=== PATIENT | female | born 1950 | race Caucasian/White ===

== ENCOUNTER 2018-04-05 08:08 | Emergency (ER) | payer MEDICARE, OTHER ==
[2018-04-05] MEDS ORDERED: Magnesium Sulfate 2 GM/NS 0.9% 50 ML BAG ONE (08:20)
[2018-04-05] MEDS ORDERED: Ondansetron PF 4 MG/2 ML Vial ONE (08:29)
[2018-04-05] MEDS ORDERED: methylPREDNISolone Sod Succ/PF 125 MG/2 ML VIAL ONE (08:29)
[2018-04-05 08:51] LABS: #Basophils 0.1 thou/uL (0.0-0.2); #Eosinphils 0.5 thou/uL (0.0-0.7); #Monocytes 0.5 thou/uL (0.11-0.59); %Basophils 2.1 % (0.0-1.0); %Eosinophils 6.4 % (0.0-10.0); %Lymphocytes 14.1 % (21.0-51.0); %Neutrophils 70.4 % (42.0-75.0); Hemoglobin 14.5 g/dL (12.0-16.0); Mean Corpuscular Hemoglobin 32.2 pg (27.0-31.0); Mean Corpuscular Volume 97.8 fL (78.0-98.0); Mean Platelet Volume 6.8 fL (7.4-10.4); Platelet Count 252 thou/uL (130-400); RBC Distribution Width 11.7 % (11.5-14.5); Red Blood Cell (RBC) Count 4.49 mill/uL (4.20-5.40)
[2018-04-05 08:56] LABS: Bilirubin Negative (Negative); Blood, Urine Negative (Negative); Clarity Clear (Clear); Glucose, Urine (Dipstick) Negative (Negative); Leukocyte Negative (Negative); Nitrite Negative (Negative); Protein, Urine (Dipstick) 30 mg/dL (Neg-Trace); Specific Gravity, Urine 1.025 (1.005-1.030); Urobilinogen 0.2 mg/dL (0.2-1.0); pH, Urine 6.5 (5.0-9.0)
[2018-04-05 09:06] LABS: Bacteria/HPF Rare-Few HPF (None Seen); RBC/HPF 0-3 HPF (0-3); Squamous Epithelial 0-3 HPF (0-3); WBC/HPF 0-3 HPF (0-3)
--- NOTE | 2018-04-05 09:06 | RAD ---
CHEST 2 VIEWS: Date: 04/05/18 HISTORY: Dyspnea. COMPARISON: Radiograph from 2011. FINDINGS: Lungs are clear. No pneumothorax or effusion. Cardiac silhouette and mediastinal contours within norm al limits. IMPRESSION: No acute intrathoracic abnormality. POS: [facility]
[2018-04-05 09:08] LABS: ALT (SGPT) 17 U/L (8-55); AST (SGOT) 23 U/L (5-34); Albumin 4.6 g/dL (3.4-4.8); Alkaline Phosphatase 83 U/L (40-150); Anion Gap 18 mmol/L (10-20); BUN (Urea Nitrogen) 11 mg/dL (9.8-20.1); Bilirubin, Total 0.3 mg/dL (0.2-1.2); Calc. Creatinine Clearance 0 mL/min (70-130); Calcium 9.7 mg/dL (7.8-10.44); Carbon Dioxide 23 mmol/L (23-31); Chloride 106 mmol/L (98-107); Estimated GFR-MDRD 82; Globulin 2.7 g/dL (2.4-3.5); Glucose 114 mg/dL (80-115); Potassium 4.1 mmol/L (3.5-5.1); Protein, Total 7.3 g/dL (6.0-8.3); Sodium 143 mmol/L (136-145)
[2018-04-05] MEDS ORDERED: Aspirin Chewable 81 MG TAB ONE (09:42)
[2018-04-05] MEDS ORDERED: cefTRIAXone\\ROCEPHIN 1 GM VIAL ONE (09:42)
[2018-04-05 10:13] LABS: CKMB 3.9 ng/mL (0-6.6)
== END 2018-04-05 10:05 | disposition short-term general hospital (02) ==
LOC: MADERS 08:08
DX: G40.901 Epilepsy, unspecified, not intractable, with status epilepticus (principal); R79.89 Other specified abnormal findings of blood chemistry; I10 Essential (primary) hypertension; J45.909 Unspecified asthma, uncomplicated
CPT/HCPCS: 71046; 80053; 81003; 81015; 82553; 83880; 84484; 85025; 85379; 87040; 87804; 93005; 94760; 96365; 96375; J0696; J2405; J2930; J3475; J7620

== ENCOUNTER 2022-01-01 11:19 | Outpatient (CLI) | payer MEDICARE, OTHER | END 2022-01-01 11:20 | disposition home or self-care (01) | LOC: MADRAD 11:19 | PROVIDERS: ATTEND Family Medicine | DX: M25.531 Pain in right wrist (principal); M19.031 Primary osteoarthritis, right wrist; M25.831 Other specified joint disorders, right wrist ==